=== PATIENT | female | born 1950 | race Caucasian/White ===

== ENCOUNTER 2017-10-14 12:25 | Outpatient (CLI) | payer MEDICARE, BC ==
[2017-10-14 14:26] LABS: #Lymphocytes 1.9 thou/uL (1.20-3.40); #Monocytes 0.3 thou/uL (0.11-0.59); #Neutrophils 4.9 thou/uL (1.40-6.50); %Basophils 0.3 % (0.0-1.0); %Eosinophils 0.3 % (0.0-10.0); %Lymphocytes 26.9 % (21.0-51.0); %Monocytes 4.7 % (0.0-10.0); %Neutrophils 67.8 % (42.0-75.0); Hemoglobin 14.3 g/dL (12.0-16.0); Mean Corpuscular HGB CONC 33.1 g/dL (32.0-36.0); Mean Corpuscular Hemoglobin 30.9 pg (27.0-31.0); Mean Corpuscular Volume 93.3 fl (81.0-99.0); Mean Platelet Volume 8.1 fL (7.4-10.4); Platelet Count 280 thou/uL (130-400); Red Blood Cell (RBC) Count 4.62 mill/uL (4.20-5.40); White Blood Cell (WBC) Count 7.2 thou/uL (4.8-10.8)
[2017-10-14 14:47] LABS: ALT (SGPT) 10 U/L (8-55); AST (SGOT) 16 U/L (5-34); Albumin 4.1 g/dL (3.4-4.8); Alkaline Phosphatase 47 U/L (40-150); Anion Gap 12 mmol/L (10-20); BUN (Urea Nitrogen) 22 mg/dL (9.8-20.1); Bilirubin, Total 0.4 mg/dL (0.2-1.2); Calc. Creatinine Clearance 0 mL/min (70-130); Calcium 9.3 mg/dL (7.8-10.44); Carbon Dioxide 27 mmol/L (23-31); Chloride 102 mmol/L (98-107); Estimated GFR-MDRD 73; Globulin 3.3 g/dL (2.4-3.5); Glucose 115 mg/dL (80-115); Potassium 4.7 mmol/L (3.5-5.1); Protein, Total 7.4 g/dL (6.0-8.3); Sodium 136 mmol/L (136-145)
== END 2017-10-14 12:26 | disposition home or self-care (01) ==
LOC: LABBT 12:25
PROVIDERS: ATTEND Surgery
DX: Z01.818 Encounter for other preprocedural examination (principal); R92.8 Other abnormal and inconclusive findings on diagnostic imaging of breast
CPT/HCPCS: 80053; 85025; 93005; 93010

== ENCOUNTER 2017-10-19 06:29 | Day surgery (SDC) | payer MEDICARE, BC ==
[2017-10-14 13:05] VITALS: BMI 28.5
[2017-10-19] MEDS ORDERED: CEFAZOLIN/Water 2 GM/20 ML SYRINGE ONE (08:24)
[2017-10-19] MEDS ORDERED: Bupivacaine/Epinephrine 0.25% 30 ML VIAL ONE (10:43)
[2017-10-19] MEDS ORDERED: Ondansetron HCl/PF 4 MG/2 ML Vial ONE ×2 (10:54→14:58)
[2017-10-19] MEDS ORDERED: HYDROmorphone 0.5 MG/0.5 ML SYRINGE ONE (10:54)
[2017-10-19] MEDS ORDERED: Fentanyl 100 MCG/2 ML VIAL ONE (10:54)
[2017-10-19] MEDS ORDERED: Promethazine HCl 25 MG/ML VIAL ONE (10:54)
--- NOTE | 2017-10-19 12:16 | OP ---
DATE OF PROCEDURE: 10/19/2017 PREOPERATIVE DIAGNOSIS: Mammographic mass, left breast. SURGEON: John Li M.D. PROCEDURE PERFORMED: Left needle localization lumpectomy. INDICATIONS: A 66-year-old female who on recent mammogram was found to have a somewhat suspicious ma ss in the deep left breast that was unable to be biopsied with the core biopsy. FINDINGS: Successful removal by specimen mammogram. PROCEDURE: After informed consent was obtained, the patient was taken to the operating room. She sánchez s undergone placement of a mammographic localization wire in the radiology department. Her left arianne st was prepped and draped in usual fashion. Local anesthesia infiltrated subcutaneously and deep. A circumareolar incision was performed. A core of breast tissue was excised around the needle and mar ked with the needle anterior, a black suture lateral, and a blue suture anterior, according to mammog gris which revealed it did contain the lesion and then to pathology for further analysis. Hemostasi s was achieved with electrocautery. The wound was thoroughly irrigated. Hemostasis assured. This b reast parenchyma reapproximated with interrupted 3-0 Vicryl. Skin closed with a running subcuticular 4-0 Rapide. Steri-Strips applied. Sterile bandage applied. The patient tolerated the procedure we ll and was transferred to recovery in good condition. Sponge and needle count verified correct x2.
[2017-10-19] MEDS ORDERED: Lidocaine 1% PF 5 ML VIAL ONE (14:58)
[2017-10-19] MEDS ORDERED: ePHEDrine/0.9% NaCl/PF SYRINGE 50 mg/10 ml ONE (14:58)
[2017-10-19] MEDS ORDERED: PROPOFOL 200 MG/20 ML VIAL ONE (14:58)
[2017-10-19] MEDS ORDERED: Dexamethasone 20 MG/5 ML VIAL ONE (14:58)
--- NOTE | 2017-10-20 14:36 | MMO ---
SPECIMEN RADIOGRAPH: DATE: 10/19/17. HISTORY: A 66-year-old female status post excisional biopsy of left breast lesion. FINDINGS: Specimen radiograph is provided. The localization wire is within the specimen. The calcification ad jacent to the mass lesion localized prior to excision is present within the specimen as well, adjacen t to a marker on the grid. IMPRESSION: Excisional biopsy specimen contains the targeted lesion and localization wire. POS: OFF
== END 2017-10-19 13:56 | disposition home or self-care (01) ==
LOC: SDC 06:29
PROVIDERS: ATTEND Surgery
PROC: 0HBU0ZX Excision of Left Breast, Open Approach, Diagnostic (ICD-10-PCS; principal; 2017-10-19)
DX: D24.2 Benign neoplasm of left breast (principal); M06.9 Rheumatoid arthritis, unspecified; Z79.52 Long term (current) use of systemic steroids; Z79.899 Other long term (current) drug therapy
CPT/HCPCS: 19281; 76098; 88307; J1100; J1170; J2001; J2405; J2550; J2704; J3010

== ENCOUNTER 2017-12-12 09:49 | Outpatient (CLI) | payer MEDICARE, BC ==
--- NOTE | 2017-12-12 11:35 | RAD ---
RIGHT FOOT: A total of 5 views obtained. History Right foot pain. Tarsals appear unremarkable. The metatarsals and phalanges appear intact. There are mild degenerati ve changes at the 1st MTP joint with articular sclerosis and mild spurring. The other MTP joints are unremarkable. IMPRESSION: Mild degenerative change at the 1st metatarsophalangeal joint. POS: [facility]
== END 2017-12-12 09:50 | disposition home or self-care (01) ==
LOC: SCSRAD 09:49
PROVIDERS: ATTEND Family Medicine
DX: M19.071 Primary osteoarthritis, right ankle and foot (principal)

== ENCOUNTER 2018-01-10 09:34 | Outpatient (CLI) | payer MEDICARE, BC ==
--- NOTE | 2018-01-10 11:40 | RAD ---
RIGHT FOOT THREE VIEWS: History: Follow up fracture. History of second metatarsal fracture. MRI performed at [facility] in October confirmed a fracture of the distal second metatarsal according to history provided. Comparison: Right foot films, 12-12-17. FINDINGS: Tarsals appear unremarkable. There is irregular sclerosis at the base of the second metatarsal which is unchanged in appearance fr om -10-26. This could potentially represent healed fracture although I do not detect periosteal react ion of cortical callus. The mid and distal metatarsals appear unremarkable with no evidence of fracture or periosteal reactio n. The phalanges are unremarkable. The MTP joints are unremarkable and unchanged. IMPRESSION: Films of the right foot show no acute process and no significant change from the 12-12-17 exam. POS: [facility]
== END 2018-01-10 09:35 | disposition home or self-care (01) ==
LOC: SCSRAD 09:34
PROVIDERS: ATTEND Family Medicine
DX: S92.324D Nondisplaced fracture of second metatarsal bone, right foot, subsequent encounter for fracture with routine healing (principal)

== ENCOUNTER 2019-03-02 09:56 | Outpatient (CLI) | payer MEDICARE, BC ==
--- NOTE | 2019-03-02 13:27 | BD ---
DEXA BONE DENSITY: HISTORY: Age-related osteoporosis. FINDINGS: Lumbar Spine: BMD (g/cm2) L1 0.812 T-Score: -1.6 0.3 L2 1.010 T-Score: -0.2 1.9 L3 0.930 T-Score: -1.4 0.8 L4 0.805 T-Score: -2.3 -0.1 L1-L4 0.885 T-Score: -1.5 0.7 Femoral Neck: 0.682 T-Score: -1.5 0.3 Total Femur: 0.858 T-Score: -0.7 0.8 Impression: Lumbar Spine: WHO classification osteopenia; fracture risk is increased. Femoral Neck: WHO classification is osteopenia. Ten-year fracture risk for a major osteoporotic frac ture is 16%; hip fracture 2.3%. POS: [facility]
== END 2019-03-02 09:57 | disposition home or self-care (01) ==
LOC: BICMAMMO 09:56
PROVIDERS: ATTEND Internal Medicine Rheumatology
DX: M81.0 Age-related osteoporosis without current pathological fracture (principal); M85.89 Other specified disorders of bone density and structure, multiple sites
CPT/HCPCS: 77080

== ENCOUNTER 2019-03-09 15:06 | Outpatient (CLI) | payer MEDICARE, BC ==
--- NOTE | 2019-03-09 17:08 | MRI ---
Exam: Right foot MRI without IV contrast: HISTORY: Right foot pain FINDINGS: There are some interosseous cystic changes in the proximal second metatarsal evidence for a nonunion chronic fracture. In addition there is a healing nondisplaced fracture through the mid third metatarsal with some callus formation. There is minimal associated angulation. Mild generalized degen erative changes including the first metatarsal phalangeal joint. Fluid within the intermetatarsal joint between the first and second toes. Intrinsic muscles of the foot appear intact. Visualized flex or, extensor, peroneus tendons appear intact. No evidence for other significant abnormal marrow signal. 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 Evidence for a healing fracture through the midportion of the third metatarsal with some callus and m ild angulation.
== END 2019-03-09 15:07 | disposition home or self-care (01) ==
LOC: SCSMRI 15:06
PROVIDERS: ATTEND Family Medicine
DX: M79.671 Pain in right foot (principal); S92.321K Displaced fracture of second metatarsal bone, right foot, subsequent encounter for fracture with nonunion; S92.331D Displaced fracture of third metatarsal bone, right foot, subsequent encounter for fracture with routine healing

== ENCOUNTER 2019-06-27 12:50 | Outpatient (CLI) | payer MEDICARE, BC ==
--- NOTE | 2019-06-27 14:57 | CT ---
CT RIGHT FOOT WITHOUT CONTRAST ENHANCEMENT: HISTORY: Follow up of fracture of the right foot. Ongoing right foot pain. The patient has a history of fractu res involving the second and third metatarsals. COMPARISON: Plain film examination from 01/15/2019. MRI study from 03/09/2019. FINDINGS: There is sclerotic change and irregularity of the fracture line of the base of the second metatarsal fracture without evidence of any bony callus formation, suggesting this is a nonunion type fracture. There is also incomplete healing of the mid shaft third metatarsal fracture. There is some bony bridg ing callus formation on the plantar side of the fracture but the callus formation on the dorsal side does not bridge to connect the proximal phalanx to the distal phalanx. IMPRESSION: Chronic appearing more nonunion type fracture of the base of the second metatarsal. There is also inc omplete healing of the third metatarsal fracture. POS: [facility]
== END 2019-06-27 12:51 | disposition home or self-care (01) ==
LOC: SCSCT 12:50
PROVIDERS: ATTEND Family Medicine
DX: S92.334K Nondisplaced fracture of third metatarsal bone, right foot, subsequent encounter for fracture with nonunion (principal); S92.324K Nondisplaced fracture of second metatarsal bone, right foot, subsequent encounter for fracture with nonunion

== ENCOUNTER 2019-07-16 13:22 | Outpatient (CLI) | payer MEDICARE, BC ==
--- NOTE | 2019-07-16 14:34 | MRI ---
MRI Lumbar Spine WO Con History: M 51.16 intervertebral disc disorder with radiculopathy Comparison: None. Findings: The aortic contour is nonaneurysmal. No retroperitoneal periaortic adenopathy. Mild fullness of the bilateral renal pelvis. No marrow infiltrative process. Levels are as follows: L1/L2: Mild degenerative disc space height loss. Low-grade circumferential disc bulge. Moderate right and mild left hypertrophic facet arthrosis. No significant neural foraminal or spinal canal narrowing. L2/L3: Advanced degenerative disc space height loss. Circumferential disc bulge. Mild effacement of v entral CSF space with the spinal canal measures approximately 1 cm. Large bilateral hypertrophic facet arthrosis. Moderate bilateral neural foraminal narrowing with abutment of the right exiting ner ve root. L3/L4: Mild degenerative disc space height loss. Moderate hypertrophic facet arthrosis. No significan t neural foraminal or spinal canal narrowing. L4/L5: Severe hypertrophic facet arthrosis. Large facet joint effusions. There is a right facet joint cyst along the medial margin of the facet joint measuring 0.6 x 0.5 x 1.3 cm abutting the right L5 and S1 nerve roots. This is superimposed upon a moderate circumferential disc bulge and left lateral recess annular fissure. Moderate left neural foraminal narrowing. L5/S1: Low-grade posterior degenerative disc space height loss. No neural foraminal or spinal canal n arrowing. Impression: Moderate spondylosis as described with a large facet joint cyst at L4/L5 on the right abu tting the right L5 and S1 nerve roots.
== END 2019-07-16 13:23 | disposition home or self-care (01) ==
LOC: SCSMRI 13:22
PROVIDERS: ATTEND Specialist
DX: M51.16 Intervertebral disc disorders with radiculopathy, lumbar region (principal); M47.26 Other spondylosis with radiculopathy, lumbar region; M53.87 Other specified dorsopathies, lumbosacral region
CPT/HCPCS: 72148

== ENCOUNTER 2020-06-11 06:29 | Day surgery (SDC) | payer MEDICARE, BC ==
[2020-06-10 12:01] VITALS: BMI 24.7
--- NOTE | 2020-06-10 16:23 | HP ---
HISTORY OF PRESENT ILLNESS: Ms. Swan is a very pleasant 69-year-old woman, presenting to our office for evaluation of lower back pain as well as right lower extremity radicular pain, seems this is an L5 pattern. She states this seems to have started after a fall some 5 years ago and was found to have multiple pelvic fractures and herniated disk. She was in physical therapy, but then was held from activity while the fractures recovered. She has been receiving CLEM with Dr. Luna, which do seem to help. MRI from [place] reveals overall well-appearing spine other than L4-L5, where she has advanced facet spondylosis as well as a large right-sided synovial cyst coming from the L4-L5 interface. Exam is deferred for telehealth visit. PAST MEDICAL HISTORY: Chronic pain syndrome, osteoporosis, rheumatoid arthritis. PAST SURGICAL HISTORY: Hysterectomy, shoulder capsular tear repair, foot fracture repair, ovarian cystectomy, plastic surgery to her eye. ALLERGIES: LATEX. CURRENT MEDICATIONS: 1. Celebrex. 2. Prednisone. 3. Methotrexate. 4. Enbrel. 5. Nexium. 6. Premarin. 7. Zyrtec. 8. Mee. 9. Valacyclovir. 10. Skelaxin. 11. Fluconazole. 12. Forteo. ASSESSMENT: Lumbar radiculopathy. PLAN: Dr. Knight met with the patient, reviewed imaging, advocated for right L4-L5 synovial cyst resection. He explained the patient risks, benefits, alternatives to the procedure. The patient expressed understanding and elected to move forward with surgery as discussed. I do believe the patient is mentally competent and capable of making medical decisions for herself. We will move forward with surgery as planned. Job ID: [id number]
[2020-06-11] MEDS ORDERED: Lidocaine 2% Jelly 5 ML TUBE ONE (08:09)
[2020-06-11] MEDS ORDERED: Fentanyl 100 MCG/2 ML VIAL ONE ×3 (08:09→10:21)
[2020-06-11] MEDS ORDERED: Lidocaine 1% w/Epinephrine 1:100K 20 ML VIAL ONE (08:26)
[2020-06-11] MEDS ORDERED: Bupivacaine PF 0.5% 30 ML VIAL ONE (08:26)
[2020-06-11] MEDS ORDERED: PROPOFOL 200 MG/20 ML VIAL ONE (09:15)
[2020-06-11] MEDS ORDERED: Ondansetron PF 4 MG/2 ML Vial ONE (09:15)
[2020-06-11] MEDS ORDERED: PHENYLEPHRINE-NS 100 MCG/ML 10 ML SYRINGE ONE (09:15)
[2020-06-11] MEDS ORDERED: Glycopyrrolate 0.2 MG/ML 5 ML SYRINGE ONE (09:15)
[2020-06-11] MEDS ORDERED: Lidocaine 1% PF 5 ML VIAL ONE (09:15)
[2020-06-11] MEDS ORDERED: ePHEDrine 50 MG/ML VIAL ONE (09:15)
[2020-06-11] MEDS ORDERED: Rocuronium Bromide 10 MG/ML (10ML VIAL) ONE (09:15)
--- NOTE | 2020-06-11 10:03 | OP ---
DATE OF PROCEDURE: 06/11/2020 IT SALES CONSULTANT: Celestino Hardin PA-C INDICATION: Pain. DIAGNOSIS: Lumbar radiculopathy secondary to L4-L5 synovial cyst. PROCEDURES PERFORMED: 1. Right L4-L5 hemilaminectomy. 2. Medial facetectomy. 3. Resection of synovial cyst. ANESTHESIA: General. DESCRIPTION OF PROCEDURE: The patient was brought into the operating room and placed under general anesthesia. She was flipped from supine to prone position on the operating room table. A linear incision was planned over the L4-L5 segment. After prepping and draping and after an appropriate preoperative pause, the incision was created. The soft tissues were swept away from midline. Self-retaining retractors were placed in the wound for optimal exposure. After confirming the appropriate level with C-arm fluoroscopy, high-speed cutting drill bit as well as 2, 3, and 4 mm Kerrisons were used to perform a laminectomy along the inferior aspect of L4 and the superior aspect of L5. There was hypermobile joint at this area. The medial half of the joint was removed and a synovial cyst was found adherent to the underlying dura. The synovial cyst was decompressed and the outer wall completely removed. After completing the decompression, the wound was irrigated. Hemostasis was maintained throughout. The wound was then closed in anatomic layers, and a pressure dressing was applied. There were no known procedural complications. Job ID: [id number]
== END 2020-06-11 12:52 | disposition home or self-care (01) ==
LOC: SDC 06:29
PROVIDERS: ATTEND Neurological Surgery
PROC: 00BY0ZZ Excision of Lumbar Spinal Cord, Open Approach (ICD-10-PCS; principal; 2020-06-11)
DX: M71.38 Other bursal cyst, other site (principal); M47.26 Other spondylosis with radiculopathy, lumbar region; G89.4 Chronic pain syndrome; M81.0 Age-related osteoporosis without current pathological fracture; M06.9 Rheumatoid arthritis, unspecified; Z79.52 Long term (current) use of systemic steroids; Z79.899 Other long term (current) drug therapy
CPT/HCPCS: 76000; J0690; J2405; J2704; J3010; J3490; S0020

== ENCOUNTER 2024-07-24 09:13 | Inpatient (IN) | payer MEDICARE, SELFPAY ==
[2024-07-24] MEDS ORDERED: Calcium Carbonate 500 MG ChewTAB PO PRN (09:53)
[2024-07-24] MEDS ORDERED: Senokot S 8.6-50 MG TAB PO PRN (09:53)
[2024-07-24] MEDS ORDERED: Ondansetron PF 4 MG/2 ML Vial IVP PRN (09:53)
[2024-07-24 10:00] VITALS: BMI 25.7
[2024-07-24] MEDS: Sodium Chloride 0.9% 1,000 ML IV SCH (11:16)
[2024-07-24] MEDS ORDERED: Iopamidol 15 ML ONE (11:35)
[2024-07-24] MEDS ORDERED: fentaNYL 50 mcg/mL 1 mL Vial ONE ×2 (11:56→12:07)
[2024-07-24] MEDS ORDERED: PROPOFOL 20 ML ONE (12:07)
[2024-07-24] MEDS ORDERED: Lidocaine 1% PF 5 ML VIAL ONE (12:07)
[2024-07-24] MEDS ORDERED: Dexamethasone 20 MG/5 ML VIAL ONE (12:23)
[2024-07-24] MEDS ORDERED: Ondansetron PF 4 MG/2 ML Vial ONE (12:23)
[2024-07-24] MEDS ORDERED: ePHEDrine Sulfate 50 MG/10 ML VIAL ONE (12:24)
[2024-07-24] MEDS: Cefepime 2 GM in Sodium Chloride 0.9% 100 ML IVPB SCH (15:55)
[2024-07-24] MEDS: Acetaminophen 325 MG TAB PO PRN (20:35)
[2024-07-25 08:10] LABS: #Basophils Less than 0.03 10x3/uL (0.0-0.2); #Eosinophils Less than 0.03 10x3/uL (0.0-0.7); %Basophils 0.1 % (0.0-1.0); %Lymphocytes 20.6 % (21.0-51.0); %Monocytes 10.3 % (0.0-10.0); %Neutrophils 68.7 % (42.0-75.0); Hematocrit 34.1 % (36.0-47.0); Hemoglobin 10.7 g/dL (12.0-16.0); Mean Corpuscular HGB CONC 31.4 g/dL (32.0-36.0); Mean Corpuscular Hemoglobin 27.4 pg (27.0-31.0); Mean Corpuscular Volume 87.2 fL (78.0-98.0); Mean Platelet Volume 11.1 fL (7.4-10.4); Platelet Count 259 10x3/uL (130-400); RBC Distribution Width 17.2 % (11.5-14.5); Red Blood Cell (RBC) Count 3.91 mill/uL (4.20-5.40)
[2024-07-25 08:27] LABS: ALT (SGPT) 7 U/L (8-55); AST (SGOT) 14 U/L (5-34); Albumin 2.9 g/dL (3.4-4.8); Alkaline Phosphatase 39 U/L (40-110); Anion Gap 12 mmol/L (10-20); BUN (Urea Nitrogen) 16 mg/dL (9.8-20.1); Bilirubin, Total 0.4 mg/dL (0.2-1.2); Calc. Creatinine Clearance 84 mL/min (70-130); Calcium 8.1 mg/dL (7.8-10.44); Carbon Dioxide 21 mmol/L (23-31); Chloride 109 mmol/L (98-107); Estimated GFR 92; Globulin 3.2 g/dL (2.4-3.5); Glucose 75 mg/dL (83-110); Protein, Total 6.1 g/dL (5.8-8.1); Sodium 138 mmol/L (136-145)
[2024-07-25 09:15] VITALS: BP 134/80; TEMP 97.9
[2024-07-25] MEDS: Loratadine 10 MG TAB PO SCH (09:17)
[2024-07-25] MEDS: Enoxaparin 40 MG (0.4 mL) SYRINGE SC SCH (09:22)
[2024-07-25] MEDS: predniSONE 5 MG TAB PO SCH (09:22)
[2024-07-25] MEDS: Folic Acid 1 MG TAB PO SCH (09:22)
[2024-07-25] MEDS: Pantoprazole 40 MG GRANULES PACKET PO SCH (09:23)
== END 2024-07-25 17:53 | disposition home or self-care (01) | DRG 660 ==
LOC: MSONC 09:13 → OBSVTOIN 09:53
PROVIDERS: ADMIT Internal Medicine; ATTEND Family Medicine
PROC: 0T788DZ Dilation of Bilateral Ureters with Intraluminal Device, Via Natural or Artificial Opening Endoscopic (ICD-10-PCS; principal; 2024-07-24)
DX: N13.6 Pyonephrosis (principal); D84.9 Immunodeficiency, unspecified; N20.2 Calculus of kidney with calculus of ureter; M06.9 Rheumatoid arthritis, unspecified
CPT/HCPCS: 36415; 74178; 80053; 81001; 83690; 85025; 87086; 96361; 96374; 96375; 96376; C2617; J0692; J0780; J1100; J1650; J2270; J2405; J2704; J3010; J7030; J7512; Q9967

== ENCOUNTER 2024-08-03 13:13 | Outpatient (CLI) | payer MEDICARE ==
[2024-08-03 15:33] LABS: #Basophils 0.03 10x3/uL (0.0-0.2); %Basophils 0.5 % (0.0-1.0); %Eosinophils 1.6 % (0.0-10.0); %Lymphocytes 34.8 % (21.0-51.0); %Monocytes 14.2 % (0.0-10.0); %Neutrophils 48.9 % (42.0-75.0); Hematocrit 37.9 % (36.0-47.0); Hemoglobin 12.1 g/dL (12.0-16.0); Mean Corpuscular HGB CONC 31.9 g/dL (32.0-36.0); Mean Corpuscular Hemoglobin 27.4 pg (27.0-31.0); Mean Corpuscular Volume 85.9 fL (78.0-98.0); Platelet Count 294 10x3/uL (130-400); RBC Distribution Width 17.4 % (11.5-14.5); Red Blood Cell (RBC) Count 4.41 mill/uL (4.20-5.40)
[2024-08-03 15:44] LABS: Anion Gap 11 mmol/L (10-20); BUN (Urea Nitrogen) 11 mg/dL (9.8-20.1); Calc. Creatinine Clearance 0 mL/min (70-130); Calcium 9.1 mg/dL (7.8-10.44); Carbon Dioxide 28 mmol/L (23-31); Chloride 106 mmol/L (98-107); Estimated GFR 75; Glucose 100 mg/dL (83-110); Potassium 3.2 mmol/L (3.5-5.1); Sodium 142 mmol/L (136-145)
[2024-08-03 15:46] LABS: Bilirubin Negative (Negative); Blood, Urine Negative (Negative); Clarity Clear (Clear); Glucose, Urine (Dipstick) Normal (Negative); Ketone, Urine Negative (Negative); Leukocyte 75 Leu/uL (Negative); Nitrite Negative (Negative); PTT 29.7 sec (22.9-36.1); Protein, Urine (Dipstick) Negative (Neg-Trace); RBC/HPF 0-3 HPF (0-3); Specific Gravity, Urine 1.009 (1.002-1.036); Squamous Epithelial 0-3 HPF (0-3); Urobilinogen Normal mg/dL (Less than 2); pH, Urine 6.5 (5.0-9.0)
[2024-08-03 15:48] LABS: Bacteria/HPF 1+ HPF (None Seen)
[2024-08-03 15:55] LABS: INR-International Normal Ratio 1.2; Prothrombin Time 14.8 sec (12.0-14.7)
== END 2024-08-03 13:14 | disposition home or self-care (01) ==
LOC: LABBT 13:13
PROVIDERS: ATTEND Orthopaedic Surgery Hand Surgery
DX: Z01.818 Encounter for other preprocedural examination (principal); N20.0 Calculus of kidney
CPT/HCPCS: 80048; 81001; 85025; 85610; 85730; 87086

== ENCOUNTER 2024-08-16 08:05 | Day surgery (SDC) | payer MEDICARE ==
[2024-08-03 14:11] VITALS: BMI 25.1
[2024-08-16] MEDS ORDERED: cefTRIAXone (ROCEPHIN) 1 GM VIAL ONE (09:39)
[2024-08-16] MEDS ORDERED: Sodium Chloride 0.9% 100 ML ONE (09:39)
[2024-08-16] MEDS ORDERED: fentaNYL PF 100 MCG/2 ML SYRINGE ONE (11:16)
[2024-08-16] MEDS ORDERED: Lidocaine 1% PF 5 ML VIAL ONE (11:16)
[2024-08-16] MEDS ORDERED: PROPOFOL 20 ML ONE (11:16)
[2024-08-16] MEDS ORDERED: Rocuronium Bromide 10 MG/ML (10ML VIAL) ONE (11:16)
[2024-08-16] MEDS ORDERED: Iopamidol 15 ML ONE (11:54)
[2024-08-16] MEDS ORDERED: Ondansetron PF 4 MG/2 ML Vial ONE (12:33)
[2024-08-16] MEDS ORDERED: Dexamethasone 20 MG/5 ML VIAL ONE (12:33)
[2024-08-16] MEDS ORDERED: PHENYLEPHRINE-NS 100 MCG/ML 10 ML SYRINGE ONE (12:41)
[2024-08-16] MEDS ORDERED: SUGAMMADEX SODIUM 200 MG/2 ML VIAL ONE (13:12)
[2024-08-16] MEDS ORDERED: Oxybutynin 5 MG TAB ONE (13:44)
[2024-08-16] MEDS ORDERED: Phenazopyridine HCl 100 MG TAB ONE (13:44)
[2024-08-16] MEDS ORDERED: HYDROcodone/Acetaminophen 5/325 mg Tablet ONE ×2 (14:35→15:25)
[2024-08-16] MEDS ORDERED: Ondansetron ODT 4 MG TAB ONE (17:18)
== END 2024-08-16 17:30 | disposition home or self-care (01) ==
LOC: SDC 08:05
PROVIDERS: ATTEND Urology
PROC: 0TC08ZZ Extirpation of Matter from Right Kidney, Via Natural or Artificial Opening Endoscopic (ICD-10-PCS; principal; 2024-08-16)
PROC: 0T768DZ Dilation of Right Ureter with Intraluminal Device, Via Natural or Artificial Opening Endoscopic (ICD-10-PCS; 2024-08-16)
DX: N12 Tubulo-interstitial nephritis, not specified as acute or chronic (principal); N20.2 Calculus of kidney with calculus of ureter; G89.4 Chronic pain syndrome; M81.0 Age-related osteoporosis without current pathological fracture; M06.9 Rheumatoid arthritis, unspecified; Z90.710 Acquired absence of both cervix and uterus; Z98.890 Other specified postprocedural states; Z79.899 Other long term (current) drug therapy; Z90.721 Acquired absence of ovaries, unilateral
CPT/HCPCS: 52356; 74420; 82365; C1747; C1769; C1894; C2617; J0696; J1100; J2405; J2704; Q0162; Q9967; 88300